=== PATIENT | male | born 1995 | race African-American/Black ===

== ENCOUNTER 2017-09-30 23:16 | Emergency (ER) | payer SELFPAY ==
[~2017-09-30] VITALS: Ht 180.3 cm; Wt 100.0 kg
[2017-10-01 02:14] VITALS: BP 120/71
[2017-10-01] MEDS ORDERED: PERTUSS(ACELL),DIPH,TET VAC/PF 0.5 ML VIAL IM ONE (02:15)
== END 2017-10-01 02:55 | disposition home or self-care (01) ==
LOC: EMS 23:17
DX: S61.313A Laceration without foreign body of left middle finger with damage to nail, initial encounter (principal); W23.0XXA Caught, crushed, jammed, or pinched between moving objects, initial encounter; Y93.89 Activity, other specified; Y92.89 Other specified places as the place of occurrence of the external cause; Y99.8 Other external cause status
CPT/HCPCS: 90471; 90715; 99283